=== PATIENT | female | born 1985 ===

== ENCOUNTER 2023-04-07 13:29 | Inpatient (IN) | payer BC ==
[2023-04-07] MEDS ORDERED: 50% Dextrose in Water 50 ML Syringe IVPUSH PRN (13:35)
[2023-04-07] MEDS ORDERED: Glucagon,Human Recombinant 1 MG Vial IM PRN (13:35)
[2023-04-07 13:58] LABS: BASOPHILS ABSOLUTE AUTO 0.1 K/uL (0.0-0.1); EOSINOPHILS ABSOLUTE AUTO 0.4 K/uL (0.0-0.7); EOSINOPHILS PERCENT AUTO 5.9 % (0.0-7.0); HEMATOCRIT 39.6 % (36.0-46.0); HEMOGLOBIN 12.7 g/dL (12.0-16.0); LYMPHOCYTES ABSOLUTE AUTO 1.2 K/uL (0.6-2.4); LYMPHOCYTES PERCENT AUTO 19.8 % (16.0-40.0); MEAN CORPUSCULAR HEMOGLOBIN 26.3 pg (27.0-32.0); MEAN CORPUSCULAR HGB CONC 32.1 g/dL (31.0-37.0); MEAN CORPUSCULAR VOLUME 82.2 fL (80.0-98.0); MONOCYTES ABSOLUTE AUTO 0.4 K/uL (0.0-0.8); MONOCYTES PERCENT AUTO 6.3 % (0.0-15.0); NEUTROPHILS ABSOLUTE AUTO 4.1 K/uL (1.4-5.7); NRBC ABSOLUTE 0 K/uL; PLATELET COUNT,PLT 264 K/uL (150-400); RED BLOOD CELL COUNT 4.82 M/uL (4.30-5.90); WHITE BLOOD CELL COUNT,WBC 6.15 K/uL (4.0-11.0)
[2023-04-07] MEDS ORDERED: Tranexamic Acid IN NACL,ISO-OS 1,000 MG in Premix Bag 1 BAG IV PRN ×2 (14:14)
[2023-04-07] MEDS ORDERED: Methylergonovine 0.2 MG/1 ML Amp IM PRN (14:14)
[2023-04-07] MEDS ORDERED: Misoprostol 25 MCG (1/4 of 100 MCG) Tab VAG PRN ×2 (14:14)
[2023-04-07] MEDS ORDERED: Sodium Chloride 0.9% 10 ML Syringe FLUSH PRN (14:14)
[2023-04-07] MEDS ORDERED: Sodium Chloride 0.9% 20 ML SDV IV PRN (14:14)
[2023-04-07] MEDS ORDERED: Butorphanol 1 MG/ML SDV IVPUSH PRN (14:14)
[2023-04-07] MEDS ORDERED: Lidocaine 1% 50 ML MDV INJECT PRN (14:14)
[2023-04-07] MEDS ORDERED: Carboprost Tromethamine 250 MCG/1 mL Vial IM PRN (14:14)
[2023-04-07] MEDS ORDERED: Sodium Chloride 0.9% 2.5 ML Syringe FLUSH PRN (14:14)
[2023-04-07] MEDS ORDERED: Water For Irrigation,Sterile 1,000 ML Container IRR PRN (14:14)
[2023-04-07] MEDS ORDERED: Misoprostol 200 MCG Tab PO PRN (14:14)
[2023-04-07] MEDS ORDERED: Ampicillin 2 GM in Sodium Chloride 0.9% 100 ML IV ONE (14:15)
[2023-04-07] MEDS ORDERED: Oxytocin/0.9 % Sodium Chloride 30 UNIT/500 ML BAG IV SCH ×2 (14:15)
[2023-04-07 14:18] LABS: A/G RATIO 0.6 (0.9-1.6); ALANINE AMINOTRANSFERASE,ALT 19 IU/L (14-63); ALBUMIN 2.7 g/dL (3.4-5.0); ALKALINE PHOSPHATASE 77 U/L (46-116); ASPARTATE AMNIOTRANSFERASE,AST 15 IU/L (15-37); BILIRUBIN TOTAL 0.2 mg/dL (0.2-1.0); BLOOD UREA NITROGEN,BUN 15 mg/dL (7.0-18.0); CALCIUM 9.4 mg/dL (8.5-10.1); CARBON DIOXIDE,CO2 24.8 mmol/L (21.0-32.0); CHLORIDE,CL 99 mmol/L (98-107); CREATININE 0.8 mg/dL (0.6-1.0); GLUCOSE RANDOM 116 mg/dL (74-106); LACTATE DEHYDROGENASE,LDH 156 U/L (81-234); POTASSIUM,K 4.3 mmol/L (3.5-5.1); SODIUM,NA 135 mmol/L (136-145)
[2023-04-07 14:19] LABS: ESTIMATED GFR 97 mL/min (>60)
[2023-04-07 14:24] LABS: CREATININE,URINE RAND 151.3 mg/dL; PROTEIN,URINE RANDOM 155.3 mg/dL (<11.9)
[2023-04-07] MEDS ORDERED: ePHEDrine 50 MG/ML SDV IVPUSH PRN ×2 (14:47)
[2023-04-07] MEDS ORDERED: Phenylephrine HCl 0.5 MG/5 ML AMP IVPUSH PRN (14:47)
[2023-04-07] MEDS ORDERED: Ropivacaine HCl/PF 400 MG in Premix Bag 1 BAG EPIDUR SCH (15:00)
[2023-04-07] MEDS: Lactated Ringers 1,000 ML IV SCH ×2 (15:11→23:00)
[2023-04-07] MEDS ORDERED: Labetalol 100 MG/20 ML MDV IVPUSH ONE (16:27)
[2023-04-07] MEDS: metFORMIN 500 MG Tab PO SCH (19:07)
[2023-04-07] MEDS: Ampicillin 1 GM in Sodium Chloride 0.9% 50 ML IV SCH ×2 (19:20→23:37)
[2023-04-07] MEDS ORDERED: Dexmedetomidine 200 MCG/2 ML SDV ONE (23:10)
[2023-04-08] MEDS ORDERED: Lactated Ringers 1,000 ML IRR SCH (00:45)
[2023-04-08] MEDS ORDERED: Ketorolac 30 MG/ML SDV ONE (02:26)
[2023-04-08] MEDS ORDERED: Oxytocin 10 Units/1 ML SDV ONE ×2 (02:26→03:03)
[2023-04-08] MEDS ORDERED: Ondansetron 4 MG/2 ML SDV ONE ×2 (02:26→03:50)
[2023-04-08] MEDS ORDERED: ceFAZolin 1 GM Vial ONE (02:26)
[2023-04-08] MEDS ORDERED: Water For Injection, Sterile 20 ML ONE (02:27)
[2023-04-08] MEDS ORDERED: Ropivacaine 0.5% 5 MG/ML 30 ML SDV ONE (02:28)
[2023-04-08] MEDS ORDERED: Misoprostol 200 MCG Tab RECTAL PRN (02:32)
[2023-04-08] MEDS ORDERED: Lanolin 100% Cream 7 GM Tube TOP PRN (02:32)
[2023-04-08] MEDS ORDERED: ceFAZolin 2 GM in Sodium Chloride 0.9% 50 ML IV ONE (02:32)
[2023-04-08] MEDS ORDERED: Witch Hazel Medicated Pads 40/Jar TOP PRN (02:32)
[2023-04-08] MEDS ORDERED: Bisacodyl 10 MG Supp RECTAL PRN (02:32)
[2023-04-08] MEDS ORDERED: Citric Acid/Sodium Citrate Solution 30 ML Cup PO ONE (02:32)
[2023-04-08] MEDS ORDERED: Ondansetron 4 MG/2 ML SDV IVPUSH PRN ×3 (02:32→04:25)
[2023-04-08] MEDS ORDERED: Acetaminophen/oxyCODONE 325-5 MG Tab PO PRN ×2 (02:32→04:25)
[2023-04-08] MEDS ORDERED: diphenhydrAMINE 50 MG/ML SDV IVPUSH PRN ×2 (02:32→04:25)
[2023-04-08] MEDS ORDERED: Oxytocin/0.9 % Sodium Chloride 30 UNIT/500 ML BAG IV SCH (02:45)
[2023-04-08] MEDS ORDERED: Ketorolac 30 MG/ML SDV IVPUSH SCH (03:00)
[2023-04-08] MEDS ORDERED: Morphine 10 MG/ML SDV ONE (03:35)
[2023-04-08] MEDS ORDERED: Morphine PF 10 MG/10 ML SDV ONE (03:36)
[2023-04-08] MEDS ORDERED: Morphine 2 MG/ML SYRINGE IVPUSH PRN (04:25)
[2023-04-08] MEDS ORDERED: Naloxone 0.4 MG/ML SDV IVPUSH PRN (04:25)
[2023-04-08] MEDS ORDERED: fentaNYL 100 MCG/2 ML SDV IVPUSH PRN (04:25)
[2023-04-08] MEDS ORDERED: Metoclopramide 10 MG/2 ML SDV IVPUSH PRN (04:25)
[2023-04-08] MEDS ORDERED: ePHEDrine 50 MG/ML SDV IVPUSH PRN (04:25)
[2023-04-08] MEDS ORDERED: droPERidol 5 MG/2 ML SDV IVPUSH PRN (04:25)
[2023-04-08] MEDS ORDERED: HYDROmorphone 1 MG/ML Syringe IVPUSH PRN (04:25)
[2023-04-08] MEDS ORDERED: fentaNYL 50 MCG/ML SDV IVPUSH PRN (04:25)
[2023-04-08] MEDS ORDERED: Albuterol 0.083% 2.5 MG/3 ML Neb Soln NEB PRN (04:25)
[2023-04-08] MEDS ORDERED: Acetaminophen 1,000 MG in Premix Bag 1 BAG IV ONE (04:54)
[2023-04-08] MEDS: metFORMIN 500 MG Tab PO SCH ×2 (08:50→19:00)
[2023-04-08] MEDS: Docusate Sodium 100 MG Cap PO SCH ×2 (08:51→21:46)
[2023-04-08] MEDS: NIFEdipine 30 MG Tab.ER PO SCH (08:51)
[2023-04-08] MEDS: Prenatal Multivitamin with Calcium/Folic Acid/Iron Tab PO SCH (08:51)
[2023-04-08] MEDS ORDERED: Insulin Glargine,Hum.Rec.Anlog 100 UNIT/ML 3 ML Pen SUBCUT SCH (09:00)
[2023-04-08] MEDS ORDERED: Lidocaine 2% with EPINEPHrine 1:200,000 20 ML SDV INJECT ONE (12:05)
[2023-04-08] MEDS ORDERED: Dexmedetomidine 200 MCG/2 ML SDV IV ONE (12:05)
[2023-04-08] MEDS: Simethicone 80 MG Tab.Chew PO SCH ×2 (12:46→19:00)
[2023-04-09] MEDS: Simethicone 80 MG Tab.Chew PO SCH ×4 (00:48→20:45)
[2023-04-09] MEDS: Acetaminophen 325 MG Tab PO PRN ×3 (00:49→11:23)
[2023-04-09 06:07] LABS: HEMOGLOBIN 9.7 g/dL (12.0-16.0); MEAN CORPUSCULAR HEMOGLOBIN 26.7 pg (27.0-32.0); MEAN CORPUSCULAR HGB CONC 32.3 g/dL (31.0-37.0); MEAN CORPUSCULAR VOLUME 82.6 fL (80.0-98.0); MEAN PLATELET VOLUME 11.3 fL (7.40-12.00); RED BLOOD CELL COUNT 3.63 M/uL (4.30-5.90); WHITE BLOOD CELL COUNT,WBC 11.77 K/uL (4.0-11.0)
[2023-04-09] MEDS: metFORMIN 500 MG Tab PO SCH ×2 (08:12→17:24)
[2023-04-09] MEDS: Docusate Sodium 100 MG Cap PO SCH ×2 (09:07→21:38)
[2023-04-09] MEDS: NIFEdipine 30 MG Tab.ER PO SCH (09:07)
[2023-04-09] MEDS: Prenatal Multivitamin with Calcium/Folic Acid/Iron Tab PO SCH (09:07)
[2023-04-09] MEDS: Ibuprofen 800 MG Tab PO PRN (15:59)
[2023-04-09] MEDS: Acetaminophen/oxyCODONE 325-5 MG Tab PO PRN (21:38)
[2023-04-10] MEDS: Simethicone 80 MG Tab.Chew PO SCH ×2 (02:00→06:26)
[2023-04-10] MEDS: Acetaminophen/oxyCODONE 325-5 MG Tab PO PRN ×2 (02:20→09:06)
[2023-04-10] MEDS: Ibuprofen 800 MG Tab PO PRN (02:37)
[2023-04-10] MEDS: Docusate Sodium 100 MG Cap PO SCH (09:00)
[2023-04-10] MEDS: metFORMIN 500 MG Tab PO SCH (09:00)
[2023-04-10] MEDS: NIFEdipine 30 MG Tab.ER PO SCH (09:01)
[2023-04-10] MEDS: Prenatal Multivitamin with Calcium/Folic Acid/Iron Tab PO SCH (09:01)
== END 2023-04-10 11:14 | disposition home or self-care (01) | DRG 540 ==
LOC: MW.OBCHECK 13:29 → MW.OB 13:31 → MW.OBCHECK 18:00 → OBSVTOIN 04-08 03:00 → MW.OB 04-08 08:40 → MW.MS 04-09 16:31
PROVIDERS: ADMIT Obstetrics & Gynecology; ATTEND Obstetrics & Gynecology
PROC: 10D00Z1 Extraction of Products of Conception, Low, Open Approach (ICD-10-PCS; principal; 2023-04-08)
PROC: 0T9B70Z Drainage of Bladder with Drainage Device, Via Natural or Artificial Opening (ICD-10-PCS; 2023-04-08)
PROC: 10907ZC Drainage of Amniotic Fluid, Therapeutic from Products of Conception, Via Natural or Artificial Opening (ICD-10-PCS; 2023-04-08)
PROC: 3E033VJ Introduction of Other Hormone into Peripheral Vein, Percutaneous Approach (ICD-10-PCS; 2023-04-08)
DX: O10.92 Unspecified pre-existing hypertension complicating childbirth (principal); O24.12 Pre-existing type 2 diabetes mellitus, in childbirth; O99.824 Streptococcus B carrier state complicating childbirth; O69.81X0 Labor and delivery complicated by cord around neck, without compression, not applicable or unspecified; O99.283 Endocrine, nutritional and metabolic diseases complicating pregnancy, third trimester; E07.9 Disorder of thyroid, unspecified; O76 Abnormality in fetal heart rate and rhythm complicating labor and delivery; Z79.4 Long term (current) use of insulin; Z37.0 Single live birth; Z3A.38 38 weeks gestation of pregnancy
CPT/HCPCS: 01967; 36415; 51702; 59025; 59514; 64488; 76819; 76819-26; 80053; 82570; 82947; 83615; 84156; 85025; 85027; 86592; 86850; 86900; 86901; A9270-GY; J0131; J0290; J0690; J1200; J1885; J2270; J2274; J2405; J2590; J2795; J3490; J7120